=== PATIENT | female | born 1960 | race Caucasian/White ===

== ENCOUNTER 2021-11-11 08:33 | Inpatient (IN) | payer OTHER ==
[~2021-11-11] VITALS: Ht 162.6 cm; Wt 85.3 kg
[~2021-11-11 08:33] MED LIST: ASPIRIN EC81 MG PO; BACTRIM DS TAB1 EACH PO; HCTZ12.5 MG PO; IBUPROFEN800 MG PO; LIPITOR 10MG TA10 MG PO; LOVAZA1 GM PO; NEXIUM2.5 MG PO; PROAIR HFA8.5 GM INH; SPIRIVA18 MCG INH; SYNTHROID25 MCG PO; TRAZODONE 100M100 MG PO; VITAMIN D400 UNIT PO; ZOFRAN4 MG SL
[2021-11-11 09:37] LABS: BASOPHIL 0.6 % (0-2); CORONAVIRUS 2019 SARS-COV-2 NEGATIVE (NEGATIVE); HCT 45.7 % (37.0-47.0); HGB 14.7 g/dl (12.5-16.0); INFLUENZA A NAA NEGATIVE (NEGATIVE); LYMPHOCYTE 41.6 % (15-48); MCH 29.1 pg (25.0-31.0); MCHC 32.2 g/dL (32.0-36.0); MCV 90.5 fL (78.0-100.0); MONOCYTE 6.6 % (0-12); MPV 9.9 fL (6.0-9.5); NRBC 0; PLT 256 K/uL (150-400); RBC 5.05 M/uL (4.20-5.40); RDW 13.2 % (11.5-14.0); WBC 8.2 K/uL (4.0-10.5)
[2021-11-11 09:39] LABS: BUN/CREAT RATIO (CALC) 16.9 RATIO; CREATININE 0.89 mg/dL (0.51-0.95); POTASSIUM 3.9 mmol/L (3.5-5.1)
[2021-11-11 09:43] LABS: LACTIC ACID 1.7 mmol/L (0.4-1.9)
[2021-11-11] MEDS ORDERED: MOBIC7.5 MG PO (13:10)
[2021-11-11] MEDS ORDERED: PROAIR HFA8.5 GM INH (13:11)
[2021-11-11] MEDS ORDERED: HCTZ12.5 MG PO (13:11)
[2021-11-11] MEDS ORDERED: LIPITOR20 MG PO (13:12)
[2021-11-11] MEDS ORDERED: LEVOTHYROXINE25 MC1 PO (13:13)
[2021-11-11] MEDS ORDERED: POTASSIUM CHLO20 ME1 PO (13:14)
[2021-11-11] MEDS ORDERED: NORVASC 10MG TA10 MG PO (13:14)
[2021-11-11] MEDS ORDERED: COZAAR100 MG PO (13:21)
[2021-11-11] MEDS ORDERED: TRAZODONE HCL150 MG PO (13:21)
[2021-11-11] MEDS ORDERED: FLEXERIL5 MG PO (13:23)
[2021-11-11] MEDS ORDERED: ASPIRIN81 MG PO (13:24)
[2021-11-11] MEDS ORDERED: PRILOSEC20 MG PO (13:25)
[2021-11-12 06:40] LABS: BASOPHIL 0.1 % (0-2); EOSINOPHIL 0 % (0-5); HCT 40.5 % (37.0-47.0); HGB 13.7 g/dl (12.5-16.0); LYMPHOCYTE 10.2 % (15-48); MCH 29.3 pg (25.0-31.0); MCHC 33.8 g/dL (32.0-36.0); MCV 86.7 fL (78.0-100.0); MONOCYTE 2.5 % (0-12); MPV 9.5 fL (6.0-9.5); NEUTROPHIL 86.5 % (41-80); NRBC 0; PLT 229 K/uL (150-400); RBC 4.67 M/uL (4.20-5.40); RDW 12.7 % (11.5-14.0); WBC 12.4 K/uL (4.0-10.5)
[2021-11-12 06:56] LABS: BUN/CREAT RATIO (CALC) 22.5 RATIO; CREATININE 0.8 mg/dL (0.51-0.95); POTASSIUM 3.5 mmol/L (3.5-5.1)
--- NOTE | 2021-11-12 14:52 | NUR ---
11/12/21 Ms. Bradford lives at home with 2 sons and 2 grandsons. 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 She has a PCP, Dr. Toro. She has a C-PAP. - Will monitor for 02 and nebulizer needs.
[2021-11-13 06:39] LABS: BASOPHIL 0.1 % (0-2); EOSINOPHIL 0.1 % (0-5); HCT 40.6 % (37.0-47.0); HGB 13.3 g/dl (12.5-16.0); LYMPHOCYTE 8.9 % (15-48); MCH 29.2 pg (25.0-31.0); MCHC 32.8 g/dL (32.0-36.0); MONOCYTE 3.3 % (0-12); MPV 9.9 fL (6.0-9.5); NEUTROPHIL 86.4 % (41-80); NRBC 0; PLT 231 K/uL (150-400); RBC 4.56 M/uL (4.20-5.40); RDW 12.6 % (11.5-14.0); WBC 15.3 K/uL (4.0-10.5)
[2021-11-13 07:13] LABS: BUN/CREAT RATIO (CALC) 34.3 RATIO; CREATININE 0.7 mg/dL (0.51-0.95); POTASSIUM 4.1 mmol/L (3.5-5.1)
[2021-11-14 06:40] LABS: HCT 38.9 % (37.0-47.0); HGB 12.9 g/dl (12.5-16.0); MCH 29.5 pg (25.0-31.0); MCHC 33.2 g/dL (32.0-36.0); MPV 10.8 fL (6.0-9.5); RBC 4.37 M/uL (4.20-5.40); RDW 12.9 % (11.5-14.0); WBC 10.6 K/uL (4.0-10.5)
[2021-11-14 07:04] LABS: BUN/CREAT RATIO (CALC) 30.6 RATIO; CREATININE 0.72 mg/dL (0.51-0.95); POTASSIUM 4.3 mmol/L (3.5-5.1)
[2021-11-14] MEDS ORDERED: DUONEB 2.5-0.5M1 AMP NEB (09:22)
[2021-11-14] MEDS ORDERED: VENTOLIN HFA IN18 GM INH (09:27)
[2021-11-14] MEDS ORDERED: AZITHROMYCIN250 MG PO (09:27)
[2021-11-14] MEDS ORDERED: SPIRIVA RESPIMAT4 GM INH (09:27)
[2021-11-14] MEDS ORDERED: PREDNISONE 20MG20 MG PO (09:27)
[2021-11-14] MEDS ORDERED: NEBULIZER UNIT NEB (09:27)
== END 2021-11-14 11:42 | disposition home or self-care (01) | DRG 189 ==
LOC: FER 08:33 → FMS 10:20
PROVIDERS: Emergency Medicine; Nurse Practitioner; Nurse Practitioner Adult Health; ADMIT Internal Medicine
DX: J96.01 Acute respiratory failure with hypoxia (principal); J44.1 Chronic obstructive pulmonary disease with (acute) exacerbation; Z20.822 Contact with and (suspected) exposure to COVID-19; I10 Essential (primary) hypertension; E78.5 Hyperlipidemia, unspecified; K21.9 Gastro-esophageal reflux disease without esophagitis; E03.9 Hypothyroidism, unspecified; M16.0 Bilateral primary osteoarthritis of hip; F17.200 Nicotine dependence, unspecified, uncomplicated; Z98.890 Other specified postprocedural states; Z90.49 Acquired absence of other specified parts of digestive tract; Z90.710 Acquired absence of both cervix and uterus; Z88.5 Allergy status to narcotic agent; Z79.82 Long term (current) use of aspirin; Z79.899 Other long term (current) drug therapy; Z99.81 Dependence on supplemental oxygen
CPT/HCPCS: 36415; 36600; 71046; 80048; 82803; 82962; 83605; 84145; 85025; 94010; 94640; 94664; 94667; 94668; J0456; J0696; J1650; J2930; J7050; J7512; U0002